=== PATIENT | female | born 1960 | race African-American/Black ===

== ENCOUNTER 2021-05-01 04:49 | Day surgery (SDC) | payer OTHER ==
[2021-04-25 15:51] VITALS: BMI 38.1
[2021-05-01 09:22] VITALS: TEMP 97.5
[2021-05-01 09:59] VITALS: BP 126/52; PULSE 66
== END 2021-05-01 10:15 | disposition home or self-care (01) ==
LOC: JASU-ENDO 04:49
PROVIDERS: ATTEND Internal Medicine Gastroenterology
PROC: 0DJD8ZZ Inspection of Lower Intestinal Tract, Via Natural or Artificial Opening Endoscopic (ICD-10-PCS; principal; 2021-05-01 08:45)
DX: Z12.11 Encounter for screening for malignant neoplasm of colon (principal)